=== PATIENT | male | born 1960 | race Caucasian/White ===

== ENCOUNTER 2020-01-09 08:29 | Outpatient (REF) | payer OTHER, SELFPAY ==
[2020-01-09 14:43] LABS: Alanine Aminotransferase 29 U/L (0-40); Albumin Level 4.3 g/dL (3.5-5.0); Alkaline Phosphatase 103 U/L (39-117); Anion Gap 13 (12-20); Aspartate Amino Transferase 26 U/L (5-37); Bilirubin Total 0.4 mg/dL (0.0-1.0); Blood Urea Nitrogen 19 mg/dL (9-16); Calcium 9.2 mg/dL (8.4-10.2); Carbon Dioxide 27 mmol/L (22-29); Chloride 99 mmol/L (96-108); Estimated Glomerular Filt Rate > 60; Glucose Random 164 mg/dL (60-115); Potassium 4.4 mmol/l (3.3-5.1); Sodium 135 mmol/L (135-145); Total Protein 7.5 g/dL (6.5-8.0); Uric Acid 7.7 mg/dL (3.4-7.0)
== END 2020-01-09 08:30 | disposition home or self-care (01) ==
LOC: CF 08:29
PROVIDERS: PCP Family Medicine; Referring Provider Family Medicine; Visit Provider Student in an Organized Health Care Education/Training Program
DX: M10.9 Gout, unspecified (principal)
CPT/HCPCS: 80053; 84550

== ENCOUNTER 2020-04-02 11:56 | Outpatient (REF) | payer OTHER, SELFPAY ==
[2020-04-02 13:57] LABS: Uric Acid 6.5 mg/dL (3.4-7.0)
== END 2020-04-02 11:57 | disposition home or self-care (01) ==
LOC: HO.LAB 11:56
PROVIDERS: Visit Provider Student in an Organized Health Care Education/Training Program
DX: M10.9 Gout, unspecified (principal)
CPT/HCPCS: 36415; 84550

== ENCOUNTER → 2020-05-07 15:56 | Outpatient (BNVA) | payer OTHER, SELFPAY | PROVIDERS: PCP Family Medicine; Visit Provider Student in an Organized Health Care Education/Training Program | DX: M10.9 Gout, unspecified (principal) ==

== ENCOUNTER → 2020-10-25 07:56 | Outpatient (BNVA) | payer OTHER, SELFPAY | PROVIDERS: PCP Family Medicine; Visit Provider Nurse Practitioner Family ==

== ENCOUNTER → 2021-05-13 10:57 | Outpatient (REF) | payer OTHER, SELFPAY ==
--- NOTE | 2021-05-13 12:02 | ECG_ITS ---
Test Reason : CARDIAC ARRHYTHMIA Blood Pressure : / mmHG Vent. Rate : 059 BPM Atrial Rate : 059 BPM P-R Int : 174 ms QRS Dur : 092 ms QT Int : 460 ms P-R-T Axes : 042 -10 020 degrees QTc Int : 455 ms Sinus bradycardia Nonspecific ST abnormality Abnormal ECG No previous ECGs available Referred By: Fannie Rivera Electronically Signed By:ERIC JEROME
== END ==
LOC: HO.CARD 10:57
PROVIDERS: PCP Family Medicine; Visit Provider Nurse Practitioner Family
DX: I49.9 Cardiac arrhythmia, unspecified (principal); M10.9 Gout, unspecified
CPT/HCPCS: 93005

== ENCOUNTER 2024-11-08 12:11 | Outpatient (AMB) | payer MEDICARE, SELFPAY ==
--- NOTE | 2024-11-08 12:16 | MHC.OFFVIS ---
Vital Signs 11/08/24 12:17 Height 5 ft 9 in Weight 203 lb 4 oz BMI 30.0 BP 132/80 Blood Pressure Location Rt brachial Position Sitting Pulse 58 Pulse Source Pulse Oximeter Pulse Oximetry (%) 98 Oxygen Delivery Method Room Air Intake Visit Reasons: INP-Tremor ok per MD Intake Note: Tremor Cake Tester Required: No Accompanied by: Self / Same As Patient Allergies No Known Allergies (No Known Allergies*) Allergy (Verified 11/08/24 12:16) Medication List - Last Reconciled 11/08/24 by Yumiko Cullen MD aspirin (Adult Low Dose Aspirin) 81 mg PO DAILY atorvastatin (Lipitor) 80 mg PO DAILY carbidopa-levodopa 25-100 mg 1 tab PO BID lisinopril 10 mg PO DAILY metoprolol succinate ER 50 mg PO DAILY HPI Comments Details: 64y/o Right handed male comes for evaluation of tremors . The tremors are mostly in his right hand at rest . His voice is softer and mumbly for atleast 6 mths now . His partner also noticed slow reaction time, slowness of movements , slowness of gait etc. Cognition- word finding difficulties Sleep- talks in his sleep , rarely has active dreams , big movements in sleep. He has snoring . No sleep study done . No restless legs or leg cramps Mood is stable He is motivated He has drooling is more at night Hand writing- hard to write big , smaller Using utensils- slower dressing- no issues shower- ok Turning in bed OK Gait- slower shuffles No falls Bowel movements - normal No bladder issues No dizziness or double vision No hallucinations No change in appetite No exposure to chemicals , neuroleptics.well water exposure for 3 years. Uncle had parkinsons No head injury [facility] Medical History (Updated 11/08/24 @ 12:55 by Yumiko Cullen MD) Snoring Parkinson's disease (tremor, stiffness, slow motion, unstable posture) Mitral valve prolapse Tremors of nervous system CAD (coronary artery disease) Health care maintenance Gout Surgical History S/P medial meniscus repair of left knee H/O heart artery stent Hx of appendectomy Family History Father HTN (hypertension) Mother No problems noted. Father No problems noted. Social History Housing: House Alcohol intake: current Patient Tobacco Use Status: Never used Tobacco e-Cigarette/Vaping Use: Never Used service: No Current occupational status: employed and retired Cognitive needs: No Hearing needs: No Vision needs: Yes (rx glasses) Physical Exam Vital Signs: Last Vital Signs Pulse 58 11/08/24 12:17 BP 132/80 11/08/24 12:17 Pulse Ox 98 11/08/24 12:17 Oxygen Delivery Method Room Air 11/08/24 12:17 BMI result Body Mass Index 30.0 Const General: cooperative, healthy appearing, comfortable and no acute distress Nutritional Appearance: overweight Orientation/consciousness: patient oriented x3 Eyes Pupils: Equal, round and reactive pupils present Neuro Other: Mildly decreased facial expression and blink Voice softer Right hand tremor - rest Fine finger movements decreased allegra R>L Foot taps decreased R>L Mild cog wheel rigidity Right UE Gait- mild stoop decreased arm swings r>L General: patient oriented x3, moves all extremities and no focal motor deficits Cranial nerves: Yes Facial sensation intact/muscles of mastication intact, Yes Equal, round and reactive pupils present, Yes Bilaterally intact EOM present, Yes Normal facial strength present, Yes Midline tongue present, Yes Symmetric palate elevation present and Yes Ability to bilaterally elevate shoulders present Cognition (Neuro): normal cognition Motor exam (neuro): 5/5 motor strength present throughout Deep tendon reflexes (DTR's): Right triceps reflex intensity grade: 1+, Left triceps reflex intensity grade: 1+, Rt Biceps (C5, C6): 1+, Left biceps reflex intensity grade: 1+, Right brachioradialis reflex intensity grade: 1+, Left brachioradialis reflex intensity grade: 1+, Right patellar reflex intensity grade: 1+ and Left patellar reflex intensity grade: 1+ Coordination: [id number] test normal Assessment & Plan Assessment & Plan (1) Parkinson's disease (tremor, stiffness, slow motion, unstable posture): Comment: Right UE tremors Code(s): G20.A1 - Parkinson's disease without dyskinesia, without mention of fluctuations Category: Medical Qualifiers: Dyskinesia presence: without dyskinesia Fluctuating manifestations: without fluctuating manifestations Qualified Code(s): G20.A1 - Parkinson's disease without dyskinesia, without mention of fluctuations (2) Snoring: Comment: with abnormal behvaior in sleep Code(s): R06.83 - Snoring Category: Medical Plan MRI with benito Sleep study - home sleep test to r/o sleep apnea PT - for Parkinsons ( patient lives in [place]) I will trial carbidopa/levodopa 25/100 1 tab bid - discussed interactions with protien side effects discussed Orders: Orders RT home sleep study Today G47.10 - Hypersomnia, unspecified, R06.83 - Snoring MR head/brain wo con Today G20.A1 - Parkinson's disease without dyskinesia, without mention of fluctuations PT Evaluation and Treatment Today G20.A1 - Parkinson's disease without dyskinesia, without mention of fluctuations Medications: New carbidopa-levodopa 25-100 mg 1 tab PO BID 60 tabs 6RF Coding Level of Care Code New Pt Level 4 (85627) Complex EM visit Add On G2211 Diagnoses Parkinson's disease without dyskinesia or fluctuating manifestations G20.A1 Dyskinesia presence: without dyskinesia Fluctuating manifestations: without fluctuating manifestations Snoring R06.83
[2024-11-08 12:17] VITALS: BP 132/80; PULSE 58; O2SAT 98
--- OUTSIDE RECORDS SUMMARY | 2024-11-08 14:55 | XMS_ITS | Clinical Summary ---
Author Organization [facility] Address [address] [place] [id number] Care Team Providers Care Sales Estimator Name Role Phone Getachew Brewster MD Primary Care Provider [phone] Allergies No known active allergies Medications * This document contains information received from the source organization and may not represent a complete record from that organization. Amoxicillin-Pot Clavulanate 875-125 MG Tab 1 TABLET EVERY 12 HOURS 20 Tab 0 03/17/2016 Active Active Problems No known active problems Immunizations Immunization Administration Dates Next Due Fc Empl Fluarix Quad, Prsrv Fr 11/21/2014,2013,11/15/2012 Fc Flu Employee Not O/w Specified, 3yrs & > 10/07/2011,11/11/2010 Flu Vac Employee 01/02/2010 Hep B (adult) 02/26/2014,09/25/2013,08/25/2013 Influenza,injectable,quad,Prsrv Fr 12/11/2016 PPD/TST (Tuberculin Skin Test) 09/05/2009 Social History Tobacco Use Types Packs/Day Years Used Date Smoking Tobacco: Never Alcohol Use Standard Drinks/Week Comments Not Asked 0 (1 standard drink = 0.6 oz pur e alcohol) Intimate Partner Violence Answer Date R ecorded Fear of Current or Ex-Partner Not on file Emotionally Abused Not on file 10/07/2022 Physically Abused Not on file 10/07/2022 Sexually Abused Not on file 10/07/2022 Feel Safe at Home Not on file 10/07/2022 Sex and Gender Information Value Date Recorded Sex Assigned at Not on file Legal Sex Male 1:28 AM EDT Gender Identity Not on file Sexual Orientation Not on file Last Filed Vital Signs Vital Sign Reading Time Taken Comments Blood Pressure 155/88 11/06/2016 4:21 PM EDT Pulse 64 11/06/2016 4:21 PM EDT Temperature - - Respiratory Rate - - Oxygen Saturation 96% 11/04/2016 3:30 PM EDT Inhaled Oxygen Concentration - - Weight 97.5 kg (215 lb) 11/06/2016 4:21 PM EDT Height 177.8 cm (5' 10 ) 11/06/2016 4:21 PM EDT Body Mass Index 30.85 11/06/2016 4:21 PM EDT Plan of Treatment Health Maintenance Due Date Last Done Comments Hepatitis C Screening 1960 DTaP/Tdap/Td (1 - Tdap) 1976 Pneumococcal 50+ years (1 of 1 - PCV) 2008 Zoster (Shingrix) (1 of 2) 2008 COVID-19 Vaccine (1 - season) 2024 Influenza (#1) 2024 12/11/2016, 08/2014, 11/13/2013, Additional history exists RSV (1 - 1-dose 75+ series) 2033 Hep B Completed 02/26/2014, 09/15, 08/25/2013 Abdominal Aorta Imaging Discontinued HPV Vaccine (No Doses Required) Completed Hep A Aged Out No longer eligi ble based on patient's age to complete this topic Hib Aged Out No longer eligi ble based on patient's age to complete this topic Meningococcal ACWY Aged Out No longer eligible based on patient's age to complete this topic Zoster (Zostavax) Discontinued Insurance [employer] PPO * Guarantor: [employer] Account Type Relation to Patient Date of Phone Billing Address [facility] [address] [place] [phone] * Guarantor: [employer] Account Type Relation to Patient Date of Phone Billing Address [facility] [phone] (Home) [phone] (Work) [address] [place] [address] Care Teams Sales Estimator Relationship Specialty Start Date End Date Getachew Brewster MD PCP - General Internal Medicine 04/20/16
== END 2024-11-08 13:02 | disposition home or self-care (01) ==
LOC: HO.HSMS 12:11
PROVIDERS: PCP Physician Assistant Medical; Visit Provider Psychiatry & Neurology Neurology
DX: G20.A1 Parkinson's disease without dyskinesia, without mention of fluctuations (principal); R06.83 Snoring
CPT/HCPCS: 99204; G2211

== ENCOUNTER → 2024-11-08 12:11 | Outpatient (BNVA) | payer MEDICARE, SELFPAY | PROVIDERS: PCP Physician Assistant Medical; Visit Provider Psychiatry & Neurology Neurology | DX: G20.A1 Parkinson's disease without dyskinesia, without mention of fluctuations (principal); R06.83 Snoring | CPT/HCPCS: 99202 ==

== ENCOUNTER 2025-01-04 07:14 | Outpatient (REF) | payer MEDICARE, SELFPAY ==
--- NOTE | ~2025-01-04 | MR_ITS ---
EXAMINATION: MR BRAIN WITHOUT CONTRAST CLINICAL INFORMATION: 64-year-old male complaining of right hand tremors and gait disturbance. Parkinson's disease without dyskinesia COMPARISON: None available. TECHNIQUE: MRI of the brain was obtained using routine sequences without contrast. Examination performed on a 1.5 Kasey Siemens high-field unit. FINDINGS: There is no diffusion restriction. There is no intracranial hemorrhage, acute infarction, mass effect, or edema. Ventricles, sulci, and cisterns are normal in size and configuration for patient age. There are no asymmetric patterns of atrophy. Temporal horns are symmetric and nondilated. No shift of midline. No hydrocephalus. No extra-axial collection. No abnormal hemosiderin deposition is identified. There are a few scattered subtle punctate foci of white matter T2 hyperintensity in the periventricular, subcortical, and hemispheric deep white matter. These foci are entirely nonspecific but statistically relate to minimal small vessel ischemic changes. Midline structures appear normally formed. The pituitary gland appears normal. Posterior fossa structures appear normal. Cerebellar tonsils are appropriately located. Major flow voids are preserved within the skull base. The globes and orbital contents demonstrate no abnormalities. There is trace fluid in the right mastoid tip. The left mastoid, and tympanic cavities are normally aerated. There is mild mucosal thickening in the dependent left maxillary sinus. Remainder of the paranasal sinuses are normally pneumatized. Extracranial soft tissues demonstrate no abnormalities. No suspicious bone marrow changes are evident. There are mild to moderate degenerative changes in the bilateral TM joints. 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 MR/MR head/brain wo con IMPRESSION: 1. No evidence of intracranial hemorrhage, acute infarction, mass effect, or edema. 2. There are minimal white matter small vessel ischemic changes. Electronically signed by: Tj Greene MD 01/04/2025 08:25 AM [facility] [place]
--- OUTSIDE RECORDS SUMMARY | 2025-01-04 07:20 | XMS_ITS | Clinical Summary ---
Author Organization [facility] Address [address] [place] [address] Care Team Providers Care Granite Fabricator Name Role Phone Getachew Brewster MD Primary Care Provider [phone] Allergies No known active allergies Medications * [...] of 2) 2008 COVID-19 Vaccine (1 - 2024- season) 2024 Influenza (#1) 2024 12/11/2016, 08/2014, [...] Phone Billing Address [facility] [address] [place] [phone] * Guarantor: [employer] Account Type Relation to Patient Date of Phone Billing Address [facility] [phone] (Home) [phone] (Work) [address] [place] [address] Care Teams Granite Fabricator Relationship Specialty Start Date End Date Getachew Brewster MD PCP - General Internal Medicine 04/20/16
[2025-01-04 08:01] LABS: MANUAL DIFF FLAG NO
[2025-01-04 08:21] LABS: Hematocrit 38.1 % (42.0-52.0); Hemoglobin 12.7 g/dl (14.0-18.0); Imm Gran Abs Auto 0.02 X10*3/uL (0.00-0.03); Imm Gran Pct Auto 0.2 % (0.0-0.4); Lymphocytes Absolute Auto 2.0 X10*3/uL (1.2-4.9); Mean Corpuscular HGB Conc 33.3 g/dl (31.0-36.0); Mean Corpuscular Hemoglobin 31.6 pg (27.0-33.0); Mean Corpuscular Volume 94.8 fL (80.0-98.0); NRBC Abs Auto 0.000 X10*3/uL (0.0-0.012); NRBC Pct Auto 0.0 /100WBC (0.0-0.2); Platelet Count 230 X10*3/uL (160-400); Red Blood Count 4.02 X10*6/uL (4.60-5.80); White Blood Count 8.8 X10*3/uL (4.8-10.8)
[2025-01-04 08:51] LABS: Alanine Aminotransferase 19 U/L (0-40); Albumin Level 4.4 g/dL (3.5-5.0); Alkaline Phosphatase 85 U/L (39-117); Anion Gap 11 (12-20); Aspartate Amino Transferase 26 U/L (5-37); Blood Urea Nitrogen 16 mg/dL (9-16); Calcium 9.1 mg/dL (8.4-10.2); Carbon Dioxide 28 mmol/L (22-29); Chloride 106 mmol/L (96-108); Cholesterol 136 mg/dL (<200); Estimated Glomerular Filt Rate > 60; HDL Cholesterol 39 mg/dL (>40); Potassium 4.3 mmol/L (3.3-5.1); Sodium 141 mmol/L (135-145); Total Protein 6.8 g/dL (6.5-8.0); Triglycerides 125 mg/dL (<150)
[2025-01-04 09:13] LABS: Folate 5.8 ng/mL (> or = 4.0); Vitamin B12 204 pg/mL (200-900)
== END 2025-01-04 07:15 | disposition home or self-care (01) ==
LOC: HO.MRI 07:14
PROVIDERS: PCP Physician Assistant Medical; Visit Provider Psychiatry & Neurology Neurology
DX: Z00.00 Encounter for general adult medical examination without abnormal findings (principal); I25.10 Atherosclerotic heart disease of native coronary artery without angina pectoris; G20.A1 Parkinson's disease without dyskinesia, without mention of fluctuations; D64.9 Anemia, unspecified; E78.6 Lipoprotein deficiency; R79.89 Other specified abnormal findings of blood chemistry; E55.9 Vitamin D deficiency, unspecified
CPT/HCPCS: 36415; 70551; 80053; 80061; 82306; 82607; 82746; 84443; 85025; 96127

== ENCOUNTER → 2025-01-04 07:18 | Outpatient (BNV) | payer MEDICARE, SELFPAY | PROVIDERS: PCP Physician Assistant Medical; Visit Provider Radiology Diagnostic Radiology | DX: G20.A1 Parkinson's disease without dyskinesia, without mention of fluctuations (principal) | CPT/HCPCS: 70551 ==